=== PATIENT | male | born 1960 | race Caucasian/White ===

== ENCOUNTER → 2023-10-14 08:15 | Outpatient (REF) | payer BC, SELFPAY | LOC: DHCBC MAIN 08:15 | PROVIDERS: ATTENDING PHYSICIAN Internal Medicine Cardiovascular Disease; FAMILY PHYSICIAN Family Medicine | DX: Z01.810 Encounter for preprocedural cardiovascular examination (principal); I42.9 Cardiomyopathy, unspecified; C18.9 Malignant neoplasm of colon, unspecified; I10 Essential (primary) hypertension | CPT/HCPCS: 93306 ==

== ENCOUNTER 2024-08-22 06:13 | Day surgery (SDC) | payer BC, SELFPAY ==
--- NOTE | 2024-08-12 11:36 | VNURNOTE ---
Patient is scheduled for an elective R TKA on 08/22/24- he is a same day patient with Dr Hurd. Spoke with patient prior to surgery. Introduced role of [facility] Liaison. Patient reports that he lives alone in a MULTI story home.
There are 3 steps to enter
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 He currently functions independently. He has a rolling walker.
He had VN services after his prior hip surgeries.
PCP is Dr Andrew Sweet.
Discussed [facility] joint protocol and post surgical plans.
Reviewed that he will have VN services initially and will then start outpatient PT.
Patient selects [facility] for his home care needs and will go to [facility] for outpatient PT. Date TBD.
Patient is in agreement with plan and states that his girlfriend or brother will be home with him. He was not willing to share girlfriend's name or contact #. Did confirm brother Matthias's contact info. Advised to bring RW with him day of surgery.
Plan: [facility] per [facility] joint protocol then outpt PT at [facility] date TBD
[2024-08-15 13:56] VITALS: BMI 31.8
[2024-08-15 14:09] LABS: ALT (SGPT) 19 U/L (0-50); AST (SGOT) 23 U/L (17-59); Albumin 4.2 g/dl (3.5-5.0); Alkaline Phosphatase 72 U/L (38-126); Blood Urea Nitrogen 21 mg/dl (9-20); Calcium 8.6 mg/dl (8.4-10.2); Carbon Dioxide 29 mmol/L (22-30); Chloride 101 mmol/L (98-107); Estimated Creatinine Clearance 54 ml/min; Glucose 83 mg/dl (70-99); Hematocrit 39.4 % (39.0-52.0); Hemoglobin 13.6 g/dL (13.0-18.0); Mean Corp Hgb Conc. 34.5 g/dL (33.0-37.0); Mean Corpuscular Hgb 30.3 pg (27.0-31.0); Mean Corpuscular Volume 87.8 fL (80.0-94.0); Mean Platelet Volume 9.9 fL (7.4-10.4); Platelet Count 147 10^3/uL (130-400); Potassium 4.2 mmol/L (3.5-5.1); Red Blood Cell Count 4.49 10^6/uL (4.70-6.10); Red Cell Dist. Width 12.7 % (11.5-14.5); Sodium 140 mmol/L (135-145); Total Bilirubin 0.7 mg/dl (0.2-1.3); Total Protein 6.8 g/dl (6.3-8.2); White Blood Cell Count 3.7 10^3/uL (4.8-10.8); eGFR 48.11
[2024-08-15 15:35] LABS: Glycohemoglobin (HgbA1c) 4.9 % (4.0-5.6)
[2024-08-17 07:49] VITALS: BMI 31.8
--- NOTE | 2024-08-18 10:02 | PTCARENOTE ---
Bhavani in Dr. Hurd office made aware of GFR 48.1 and Cr 1.6.
[2024-08-22] VITALS (20 sets, daily range): BP systolic 116–165; BP diastolic 65–95; PULSE 93; O2SAT 95
[2024-08-22] MEDS: TYLENOL 650 MG PO (06:22)
[2024-08-22] MEDS: CELEBREX 200 MG PO (06:22)
[2024-08-22] MEDS: NORMOSOL-R/PLASMALYTE-A 1000 IV (06:42)
--- NOTE | 2024-08-22 07:22 | W.DS.TRANS ---
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
-
Discharge Instructions:
Sleep Apnea Risk Intermediate
Discharge Diagnosis/Procedures Right knee replacement Dr. Hurd 08/22/24
Diet As tolerated
Activity As tolerated,With assistance,With Walker
Driving Restrictions No driving
Bathing Restrictions OK to Shower
Other Services PT
Wound Care Aquacel dressing in place for 7-10 days then
incision open to air
Instructions:
Stand-Alone Forms: SDS Total Hip and Knee D/C
Changes to Home Medications: Yes
Discharge Medications:
DC Medications w/original date entered in [facility]
allopurinol 300 mg tablet 300 mg PO PRN PRN Gout 01/04/21
sildenafil 100 mg tablet (Viagra) 100 mg PO PRN PRN ED 02/15/21
carvedilol 12.5 mg tablet 12.5 mg PO BID 08/16/24
furosemide 20 mg tablet 20 mg PO PRN PRN water 08/16/24
sacubitril 97 mg-valsartan 103 mg tablet (Entresto) 1 tab PO BID 08/16/24
acetaminophen 500 mg capsule 1,000 mg (2 x 500 mg) PO Q6H PRN Pain #60 caps 08/22/24
aspirin 325 mg tablet 325 mg PO DAILY #30 tabs 08/22/24
dexamethasone 4 mg tablet 4 mg PO BID #7 tabs 08/22/24
docusate sodium 100 mg capsule (Colace) 100 mg PO BID #14 caps 08/22/24
docusate sodium 100 mg capsule (Colace) 100 mg PO BID stool softner #1 cap 08/22/24
magnesium hydroxide 400 mg/5 mL oral suspension (Milk of Magnesia) 30 ml PO HS PRN Constipation #1 mL 08/22/24
ondansetron 4 mg disintegrating tablet 4 mg PO Q8H nausea #20 tabs 08/22/24
oxycodone 5 mg tablet 5 mg PO Q6H PRN Pain #30 tabs 08/22/24
sennosides 8.6 mg tablet (Senokot) 8.6 mg PO BID PRN Constipation #14 tabs 08/22/24
sennosides 8.6 mg tablet (Senokot) 17.2 mg (2 x 8.6 mg) PO BID laxative #2 tabs 08/22/24
Home Medication Changes
aspirin 325 mg tablet 325 mg PO DAILY #30 tabs 08/22/24
dexamethasone 4 mg tablet 4 mg PO BID #7 tabs 08/22/24
docusate sodium 100 mg capsule (Colace) 100 mg PO BID #14 caps 08/22/24
docusate sodium 100 mg capsule (Colace) 100 mg PO BID stool softner #1 cap 08/22/24
magnesium hydroxide 400 mg/5 mL oral suspension (Milk of Magnesia) 30 ml PO HS PRN Constipation #1 mL 08/22/24
ondansetron 4 mg disintegrating tablet 4 mg PO Q8H nausea #20 tabs 08/22/24
oxycodone 5 mg tablet 5 mg PO Q6H PRN Pain #30 tabs 08/22/24
sennosides 8.6 mg tablet (Senokot) 8.6 mg PO BID PRN Constipation #14 tabs 08/22/24
sennosides 8.6 mg tablet (Senokot) 17.2 mg (2 x 8.6 mg) PO BID laxative #2 tabs 08/22/24
Pending Results: No
[2024-08-22] MEDS: DILAUDID 0.5 MG IV ×3 (09:25→10:04)
[2024-08-22] MEDS: ROXICODONE 5 MG PO (10:24)
[2024-08-22] MEDS: ANCEF 5 IV (11:50)
== END 2024-08-22 13:41 | disposition home or self-care (01) ==
LOC: SDS 06:13
PROVIDERS: ATTENDING PHYSICIAN Specialist; FAMILY PHYSICIAN Family Medicine
DX: M17.11 Unilateral primary osteoarthritis, right knee (principal); M51.369 Other intervertebral disc degeneration, lumbar region without mention of lumbar back pain or lower extremity pain; E66.9 Obesity, unspecified; Z68.32 Body mass index [BMI] 32.0-32.9, adult; Z96.643 Presence of artificial hip joint, bilateral; Z87.81 Personal history of (healed) traumatic fracture
CPT/HCPCS: 27447; 36415; 73560; 80053; 83036; 85027; 86850; 86900; 86901; 87070; 97116; 97162; C1713; C1776

== ENCOUNTER → 2024-10-05 10:58 | Outpatient (REF) | payer BC, SELFPAY ==
[2024-10-05 11:53] LABS: % Basophils 1.2 % (0-2); % Immature Granulocytes 0.3 % (0-0.5); % Lymphocytes 22.7 % (20.5-51.1); % Monocytes 13.9 % (1.7-9.3); % Neutrophils 48.9 % (42.2-75.2); Absolute Eosinophils 0.4 10^3/uL (0-0.7); Absolute Lymphocytes 0.8 10^3/uL (1.2-3.4); Absolute Monocytes 0.5 10^3/uL (0.1-0.6); Absolute Neutrophils 1.7 10^3/uL (1.4-6.5); Hematocrit 40.6 % (39.0-52.0); Mean Corp Hgb Conc. 34.5 g/dL (33.0-37.0); Mean Corpuscular Hgb 30.3 pg (27.0-31.0); Mean Corpuscular Volume 87.9 fL (80.0-94.0); Mean Platelet Volume 9.8 fL (7.4-10.4); Nucleated Red Blood Cells % 0 % (-); Platelet Count 133 10^3/uL (130-400); Red Blood Cell Count 4.62 10^6/uL (4.70-6.10); Red Cell Dist. Width 14.2 % (11.5-14.5); White Blood Cell Count 3.4 10^3/uL (4.8-10.8)
[2024-10-05 15:09] LABS: Blood Urea Nitrogen 21 mg/dl (9-20); Calcium 9.4 mg/dl (8.4-10.2); Carbon Dioxide 27 mmol/L (22-30); Chloride 97 mmol/L (98-107); Glucose 100 mg/dl (70-99); Potassium 4.5 mmol/L (3.5-5.1); Sodium 134 mmol/L (135-145); eGFR 56.48
== END ==
LOC: REG 10:58
PROVIDERS: ATTENDING PHYSICIAN Specialist
DX: Z01.818 Encounter for other preprocedural examination (principal)
CPT/HCPCS: 36415; 80048; 85025

== ENCOUNTER 2024-10-19 06:12 | Day surgery (SDC) | payer BC, SELFPAY | END 2024-10-19 12:46 | disposition home or self-care (01) | LOC: GI 06:12 | PROVIDERS: ATTENDING PHYSICIAN Surgery | DX: Z12.11 Encounter for screening for malignant neoplasm of colon (principal); K57.30 Diverticulosis of large intestine without perforation or abscess without bleeding; Z85.038 Personal history of other malignant neoplasm of large intestine; Z98.0 Intestinal bypass and anastomosis status | CPT/HCPCS: G0105 ==

== ENCOUNTER → 2024-10-28 15:02 | Outpatient (REF) | payer BC, SELFPAY ==
[2024-10-28 15:52] LABS: % Basophils 0.5 % (0-2); % Eosinophils 3.5 % (0-6); % Immature Granulocytes 0.2 % (0-0.5); % Lymphocytes 14.7 % (20.5-51.1); % Neutrophils 73.1 % (42.2-75.2); Absolute Eosinophils 0.2 10^3/uL (0-0.7); Absolute Lymphocytes 0.8 10^3/uL (1.2-3.4); Absolute Monocytes 0.5 10^3/uL (0.1-0.6); Absolute Neutrophils 4.1 10^3/uL (1.4-6.5); Hematocrit 41.7 % (39.0-52.0); Hemoglobin 14.1 g/dL (13.0-18.0); Mean Corp Hgb Conc. 33.8 g/dL (33.0-37.0); Mean Corpuscular Volume 88.7 fL (80.0-94.0); Mean Platelet Volume 9.4 fL (7.4-10.4); Nucleated Red Blood Cells % 0 % (-); Platelet Count 176 10^3/uL (130-400); Red Cell Dist. Width 13.3 % (11.5-14.5); White Blood Cell Count 5.6 10^3/uL (4.8-10.8)
[2024-10-28 16:26] LABS: Blood Urea Nitrogen 16 mg/dl (9-20); Calcium 9.7 mg/dl (8.4-10.2); Carbon Dioxide 26 mmol/L (22-30); Chloride 101 mmol/L (98-107); Glucose 111 mg/dl (70-99); Potassium 4.1 mmol/L (3.5-5.1); Sodium 138 mmol/L (135-145); eGFR > 60.00
== END ==
LOC: REG 15:02
PROVIDERS: ATTENDING PHYSICIAN Specialist; FAMILY PHYSICIAN Family Medicine
DX: Z01.818 Encounter for other preprocedural examination (principal)
CPT/HCPCS: 36415; 80048; 85025

== ENCOUNTER 2024-11-17 05:57 | Day surgery (SDC) | payer BC, SELFPAY ==
--- NOTE | 2024-11-10 12:02 | VNURNOTE ---
Patient is scheduled for an elective L TKA on 11/17/24- he is a same day patient with Dr Hurd. Spoke with patient briefly prior to surgery. Introduced role of [facility] Liaison. Patient reports that he lives alone.
He has a rolling walker.
He had [facility]N services after his prior knee and hip, was same day surgery, and had [facility] same day protocol.
Discussed [facility] joint protocol and post surgical plans.
Reviewed that he will have VN services initially and will then start outpatient PT.
Patient selects [facility] for his home care needs and will go to [facility] for outpatient PT. Scheduled for 11/21.
Patient is in agreement with plan and states that his friend might be home with him the day of surgery. His friend will pick him up day of surgery. Advised to bring RW with him day of surgery. Referral placed in [facility].
Did not assess home lay-out, pt ended call abruptly.
Plan: [facility] per [facility] joint protocol on 11/17 then outpt PT on 11/21
[2024-11-11 14:06] VITALS: BMI 32.7
[2024-11-14 15:58] VITALS: BMI 32.7
[2024-11-17] VITALS (11 sets, daily range): BP systolic 134–182; BP diastolic 65–100
[2024-11-17] MEDS: TYLENOL 650 MG PO (06:17)
[2024-11-17] MEDS: CELEBREX 200 MG PO (06:17)
[2024-11-17] MEDS: NORMOSOL-R/PLASMALYTE-A 1000 IV (06:41)
[2024-11-17] MEDS: ANCEF 5 IV (11:05)
[2024-11-17] MEDS: ROXICODONE 5 MG PO (11:31)
== END 2024-11-17 11:45 | disposition home health service (06) ==
LOC: SDS 05:57
PROVIDERS: ATTENDING PHYSICIAN Specialist; FAMILY PHYSICIAN Family Medicine
DX: M17.12 Unilateral primary osteoarthritis, left knee (principal); M16.10 Unilateral primary osteoarthritis, unspecified hip; Z96.643 Presence of artificial hip joint, bilateral
CPT/HCPCS: 27447; 36415; 73560; 87070; 97162; C1713; C1776

== ENCOUNTER → 2025-07-13 09:15 | Outpatient (REF) | payer OTHER, SELFPAY | LOC: RCS 09:15 | PROVIDERS: ATTENDING PHYSICIAN Internal Medicine Cardiovascular Disease; FAMILY PHYSICIAN Family Medicine | DX: I50.22 Chronic systolic (congestive) heart failure (principal) | CPT/HCPCS: 93306 ==